=== PATIENT | female | born 1950 | race Caucasian/White ===

== ENCOUNTER 2018-09-26 10:58 | Emergency (ER) | payer SELFPAY ==
[2018-09-26 11:06] VITALS: BP 172/76; PULSE 78; TEMP 98.2; BMI 31.7
[2018-09-26] MEDS ORDERED: ACETAMINOPHEN 325 MG TABLET (FP) PO ONE (11:56)
--- NOTE | 2018-09-26 11:56 | PDOC ---
History of Present Illness - General Chief Complaint: Injury Stated Complaint: FALL Time Seen by Provider: 09/26/18 11:48 History Source: Patient Exam Limitations: No Limitations - History of Present Illness Initial Comments: CHIEF COMPLAINT: 68 y/o afebrile female with PMH osteoporosis and arthritis with facial lac and head pain s/p fall while playing tennis. HISTORY OF PRESENT ILLNESS: The patient states [place] trying [place] get a ball and fell on her face. She now admits to headache and nose pain. She denies LOC, seizures, neck pain, n/v/d, CP, SOB, visual changes , pain with eye movement. She is not on a blood thinner. Vital signs on arrival are notable for BP of 172/76. REVIEW OF SYSTEMS: GENERAL/CONSTITUTIONAL: No fever/chills. No weakness. No weight change. HEAD, EYES, EARS, NOSE AND THROAT: No change in vision. No ear pain or discharge. No sore throat. +nose pain. CARDIOVASCULAR: No chest pain or shortness of breath. RESPIRATORY: No cough, wheezing, or hemoptysis. GASTROINTESTINAL: No nausea, vomiting, diarrhea. GENITOURINARY: No dysuria, frequency, or change in urination. MUSCULOSKELETAL: No joint or muscle swelling or pain. No neck or back pain. SKIN: No rash or easy bruising. +laceration to forehead NEUROLOGIC: +headache. No vertigo, loss of consciousness, or loss of sensation. PHYSICAL EXAM: GENERAL: The patient is awake, alert, and fully oriented, in no acute distress. HEAD: 6cm horizontal laceration to forehead with well approximated margins and minimal bleeding. NECK: No midline cervical spine TTP or step offs. Full flexion, extension and lateral movements of neck without pain. ENT: Pupils equal, round and reactive to light, extraocular movements intact, sclera anicteric, conjunctiva clear. No swelling, deformities or crepitus to orbits. No entrapment. No raccoon eyes. No septal hematomas. Nose appears crooked and slightly swollen but no crepitus. No bleeding from nares. LUNGS: Clear to auscultation bilaterally. Normal excursion. No respiratory distress or use of accessory muscles. CV: RRR, S1/S2, no MRG. Cap refill < 2 sec. ABDOMEN: Soft, non-distended, non-tender even to deep palpation, no hepatomegaly or splenomegaly, no masses. EXTREMITIES: Normal range of motion, no edema. NEUROLOGICAL: Normal speech, normal gait. CN II-XII grossly intact. Patient A& O x 3 SKIN: Warm, dry, normal turgor, no rashes or lesions noted. Past History - Past Medical History Allergies/Adverse Reactions: Allergies Allergy/AdvReac Type Severity Reaction Status Date / Time No Known Allergies Allergy Verified 09/26/18 11:02 Home Medications: Ambulatory Orders NK [No Known Home Medication] 09/26/18 COPD: No - Immunization History Immunization Up to Date: Yes - Suicide/Smoking/Psychosocial Hx Smoking History: Never smoked Information on smoking cessation initiated: No Hx Alcohol Use: No Drug/Substance Use Hx: No *Physical Exam - Vital Signs Last Vital Signs Temp Pulse Resp BP Pulse Ox 98.2 F 78 16 172/76 H 97 09/26/18 11:02 09/26/18 11:02 09/26/18 11:02 09/26/18 11:02 09/26/18 11:02 Moderate Sedation - Procedure Monitoring Vital Signs: Procedure Monitoring Vital Signs Temperature 98.2 F 09/26/18 11:02 Pulse Rate 78 09/26/18 11:02 Respiratory Rate 16 09/26/18 11:02 Blood Pressure 172/76 H 09/26/18 11:02 O2 Sat by Pulse Oximetry (%) 97 09/26/18 11:02 Procedures - Laceration/Wound Repair Anterior Head Wound Length: 5.0 to 7.5 cm Wound Explored: clean Wound's Depth, Shape: into muscle, irregular Irrigated w/ Saline: Yes Betadine Prep: Yes Anesthesia: 1% Lidocaine w/ Epi Amount of Anesthetic (ccs): 12 Wound Debrided: minimal Wound Repaired With: Sutures Suture Size/Type: 6:0 Number of Sutures: 10 Layer Closure: Yes Deep Layer Suture Size/Type: 3:0, gut Number of Deep Layer Sutures: 2 Sterile Dressing Applied: Yes Medical Decision Making - Medical Decision Making A/P: 68 y/o female with head trauma, facial lac and swollen nose after slip and fall while playing tennis today. Plan is as follows: 1. PO tylenol 2. Tetanus 3. Head CT 4. Facial bones CT 5. Lac repair Head CT IMPRESSION: No bleeding. No fracture Facial bones CT IMPRESSION: No fractures Gave patient results. Repaired lac. Gave all instructions. Her and her family understand all instructions. The patient verbalizes understanding of all instructions, has no further questions and is awaiting discharge. *DC/Admit/Observation/Transfer Diagnosis at time of Disposition: Laceration Head trauma Qualifiers: Encounter type: initial encounter Qualified Code(s): S09.90XA - Unspecified injury of head, initial encounter - Discharge Dispostion Disposition: HOME Condition at time of disposition: Improved - Referrals Referrals: Lisa Corado MD [Staff Physician] - - Patient Instructions Printed Discharge Instructions: DI for Closed Head Injury, DI for Laceration Repair -- Complex Suture Additional Instructions: Discharge Instructions: -The cat scan of your head and face were normal -You had 2 internal sutures that will be absorbed. You had 10 sutures that need to be removed in 5-7 days -Please keep wound dry for 24 hours -After 24 hours, wash gently with soap and water -Apply bacitracin tomorrow after cleaning area -No exercise for 2-3 weeks -Ice your face to help with swelling -Take tylenol for pain for the next 24 hours; afterwards you can restart your Meloxicam -Return to the ER with any worsening or concerning symptoms - Post Discharge Activity
[2018-09-26] MEDS ORDERED: ACETAMINOPHEN 325 MG TABLET (FP) ONE (11:57)
[2018-09-26] MEDS ORDERED: DIPHTH,PERTUSS(ACELL),TET 0.5 ML DISP.SYRIN IM ONE ×2 (12:08→13:02)
[2018-09-26] MEDS ORDERED: LIDOCAINE 1%/EPI 1:100000 (20 ML MULTI DOSE VIAL) ONE (13:54)
--- NOTE | 2018-09-26 22:57 | PDOC ---
*Physical Exam - Vital Signs Last Vital Signs Temp Pulse Resp BP Pulse Ox 98.2 F 78 16 172/76 H 97 09/26/18 11:02 09/26/18 11:02 09/26/18 11:02 09/26/18 11:02 09/26/18 11:02 - Physical Exam Comments: 09/26/18 23:53 gen: [id number], head: forehead lac - sutures in place, slow ooze from middle aspect of forehead lac neuro: no focal neuro deficits, ambulates with a steady gait -facial abrasion - no other active bleeding ED Treatment Course - Medications Given in the ED: ED Medications Discontinued Medications Generic Name Dose Route Start Last Admin Trade Name Freq PRN Reason Stop Dose Admin Acetaminophen 650 mg 09/26/18 11:56 09/26/18 12:01 Tylenol - PO 09/26/18 11:57 650 mg ONCE ONE Administration Diphtheria/Tetanus/Acell Pertussis 0.5 ml 09/26/18 12:08 09/26/18 13:28 Boostrix - IM 09/26/18 12:09 0.5 ml .ONCE ONE Administration Medical Decision Making - Medical Decision Making 09/27/18 00:03 a/p: 68yo female with forehead lac with persistent oozing from the site -recombinant thrombin and surgicel applied -pressure applied -bleeding stopped -pt ambulating in the ED without any further bleeding -all sutures in place -stable for d/c to home -dressing re-applied -pt feeling much better and confident she can now go home without any further bleeding *DC/Admit/Observation/Transfer Diagnosis at time of Disposition: Laceration Head trauma Qualifiers: Encounter type: initial encounter Qualified Code(s): S09.90XA - Unspecified injury of head, initial encounter - Discharge Dispostion Disposition: HOME Condition at time of disposition: Improved - Referrals Referrals: Lisa Corado MD [Staff Physician] - - Patient Instructions Printed Discharge Instructions: DI for Laceration Repair -- Complex Suture, DI for Closed Head Injury Additional Instructions: Discharge Instructions: -The cat scan of your head and face were normal -You had 2 internal sutures that will be absorbed. You had 10 sutures that need to be removed in 5-7 days -Please keep wound dry for 24 hours -After 24 hours, wash gently with soap and water -Apply bacitracin tomorrow after cleaning area -No exercise for 2-3 weeks -Ice your face to help with swelling -Take tylenol for pain for the next 24 hours; afterwards you can restart your Meloxicam -Return to the ER with any worsening or concerning symptoms - Post Discharge Activity
[2018-09-26] MEDS ORDERED: THROMBIN (RECOMBINANT) 5,000 UNIT VIAL TP ONE (23:30)
--- NOTE | 2018-09-27 00:08 | PDOC ---
*Physical Exam - Vital Signs Last Vital Signs Temp Pulse Resp BP Pulse Ox 98.2 F 78 16 172/76 H 97 09/26/18 11:02 09/26/18 11:02 09/26/18 11:02 09/26/18 11:02 09/26/18 11:02 ED Treatment Course - Medications Given in the ED: ED Medications Discontinued Medications Generic Name Dose Route Start Last Admin Trade Name Kerry PRN Reason Stop Dose Admin Acetaminophen 650 mg 09/26/18 11:56 09/26/18 12:01 Tylenol - PO 09/26/18 11:57 650 mg ONCE ONE Administration Diphtheria/Tetanus/Acell Pertussis 0.5 ml 09/26/18 12:08 09/26/18 13:28 Boostrix - IM 09/26/18 12:09 0.5 ml .ONCE ONE Administration Thrombin (Recombinant) 5,000 unit 09/26/18 23:30 09/26/18 23:30 Recothrom TP 09/26/18 23:31 5,000 unit ONCE ONE Administration Medical Decision Making - Medical Decision Making Pt was signed out by NAHOMI Santos. Pt was evaluated in fast track after a fall and had a forehead laceration sutured. Head CT was negative. Pt was brought back to main ER floor due to continued oozing from L lateral end of suture site. After holding continued pressure, applying ~0.5 cc of liquid direct thrombin inhibitor, and applying a surgicell bandage, the oozing from the suture site was controlled. Pressure bandage was applied and pt was advised not to wash the area or remove the surgicell for another day. Pt will be discharged to home with PCP follow-up. Strict return precautions provided with pt understanding. 09/27/18 00:05 *DC/Admit/Observation/Transfer Diagnosis at time of Disposition: Laceration Head trauma Qualifiers: Encounter type: initial encounter Qualified Code(s): S09.90XA - Unspecified injury of head, initial encounter - Discharge Dispostion Disposition: HOME Condition at time of disposition: Improved - Referrals Referrals: Lisa Corado MD [Staff Physician] - - Patient Instructions Printed Discharge Instructions: DI for Laceration Repair -- Complex Suture, DI for Closed Head Injury Additional Instructions: Discharge Instructions: -The cat scan of your head and face were normal -You had 2 internal sutures that will be absorbed. You had 10 sutures that need to be removed in 5-7 days -Please keep wound dry for 24 hours -After 24 hours, wash gently with soap and water -Apply bacitracin tomorrow after cleaning area -No exercise for 2-3 weeks -Ice your face to help with swelling -Take tylenol for pain for the next 24 hours; afterwards you can restart your Meloxicam -Return to the ER with any worsening or concerning symptoms - Post Discharge Activity
== END 2018-09-27 00:11 | disposition home or self-care (01) ==
LOC: JER 10:58 → JERFT 10:58
PROC: 3E0234Z Introduction of Serum, Toxoid and Vaccine into Muscle, Percutaneous Approach (ICD-10-PCS; principal; 2018-09-26)
PROC: 0JQ10ZZ Repair Face Subcutaneous Tissue and Fascia, Open Approach (ICD-10-PCS; 2018-09-26)
DX: S01.81XA Laceration without foreign body of other part of head, initial encounter (principal); W18.39XA Other fall on same level, initial encounter; Y93.73 Activity, racquet and hand sports; Y92.312 Tennis court as the place of occurrence of the external cause; Y99.8 Other external cause status
CPT/HCPCS: 70450-TC; 70486-TC; 90715; 99282-25

== ENCOUNTER 2018-09-26 20:25 | Emergency (ER) | payer SELFPAY ==
--- NOTE | 2018-09-26 20:56 | PDOC ---
Rapid Medical Evaluation Medical Evaluation: Allergies Allergy/AdvReac Type Severity Reaction Status Date / Time No Known Allergies Allergy Verified 09/26/18 11:02 I have performed a brief in-person evaluation of this patient. The patient presents with a chief complaint of: Patient just discharged from ED today for repair of forehead laceration that she got around 10:30 AM today; patient is not on blood thinners Pertinent physical exam findings: Patient has active bleeding from site of laceration (in need of more stitches) The patient will proceed to the ED for further evaluation. 09/26/18 20:54
[2018-09-26 20:59] VITALS: BP 163/76; PULSE 72; TEMP 98; BMI 31.7
--- NOTE | 2018-09-26 21:17 | PDOC ---
History of Present Illness - General Chief Complaint: Laceration Stated Complaint: Suture/Staple Removal(Here) Time Seen by Provider: 09/26/18 21:08 History Source: Patient Exam Limitations: No Limitations - History of Present Illness Initial Comments: Patient is a 68-year-old female who was evaluated earlier today a laceration repair by another physician public health training assistant and a head CT which was negative who returns stating that the laceration to the right side of her for had there is a scant amount of bleeding. She denies reinjury or trauma. She denies visual disturbances. She denies nausea or vomiting, denies otorrhea or rhinorrhea. She is not been taking NSAIDs nor is hse on anticoagulants. Pain is a 2 out of 10. Denies any relieving or relieving factors. 09/26/18 21:12 Past History - Travel Traveled outside of the country in the last 30 days: No Close contact w/someone who was outside of country & ill: No - Past Medical History Allergies/Adverse Reactions: Allergies Allergy/AdvReac Type Severity Reaction Status Date / Time No Known Allergies Allergy Verified 09/26/18 20:56 Home Medications: Ambulatory Orders NK [No Known Home Medication] 09/26/18 COPD: No - Immunization History Immunization Up to Date: Yes - Suicide/Smoking/Psychosocial Hx Smoking History: Never smoked Have you smoked in the past 12 months: No Information on smoking cessation initiated: No Hx Alcohol Use: No Drug/Substance Use Hx: No Review of Systems - Review of Systems Able to Perform ROS?: Yes All Other Systems: Reviewed and Negative *Physical Exam - Vital Signs Last Vital Signs Temp Pulse Resp BP Pulse Ox 98.0 F 72 18 163/76 98 09/26/18 20:57 09/26/18 20:57 09/26/18 20:57 09/26/18 20:57 09/26/18 20:57 - Physical Exam Comments: Constitutional: VS stated, pt appears in no apparent distress; sitting in chair. Skin: Pt has a 6 cm laceration which has been repaired to the right side of the forehead. Sutures are in place, pt has a scant amount of blood to the end. Head: Normocephalic; Eyes: Extraocular movements intact, PERRL, conjunctiva pink without injection or discharge. Lids normal; no periorbital edema or erythema. Vision subjectively normal or at baseline. Ears: No tenderness present. Canals without injection or discharge; TM clear, no retractions or bulging. Nose: Patent, mucosa pink. No drainage. Throat: Oropharynx with pink and moist mucosa. Neck: Supple, non-tender, with full ROM, trachea midline, no anterior/posterior cervical chain lymphadenopathy, thyroid nonpalpable. No stridor or bruits. Lungs: Bilateral breath sounds clear upon auscultation. No adventitious breath sounds. Heart: Regular rate and rhythm, S1/S2 auscultated. No murmurs, rubs, or gallops. No visible pulsations, heaves, or lifts on precordium. Musculoskeletal: Moves all extremities without difficulty. Neurologic: Awake, alert. Conversation fluent. Normal attention. Oriented to person, place, and time. Cranial nerves 1-12 intact. Gross sensory and motor strength intact; cerebellar function normal. Steady gait noted, deep tendon reflexes within normal range. 09/26/18 21:13 Moderate Sedation - Procedure Monitoring Vital Signs: Procedure Monitoring Vital Signs Temperature 98.0 F 09/26/18 20:57 Pulse Rate 72 09/26/18 20:57 Respiratory Rate 18 09/26/18 20:57 Blood Pressure 163/76 09/26/18 20:57 O2 Sat by Pulse Oximetry (%) 98 09/26/18 20:57 Medical Decision Making - Medical Decision Making 09/26/18 21:16 Pressure dressing was applied. *DC/Admit/Observation/Transfer Diagnosis at time of Disposition: Laceration - Discharge Dispostion Disposition: HOME Condition at time of disposition: Stable Decision to Admit order: No - Referrals - Patient Instructions Printed Discharge Instructions: DI for Laceration Repair Additional Instructions: Pressure dressing on for 2 days, keep dry. Then remove. Return for worsening symptoms. - Post Discharge Activity
== END 2018-09-26 21:40 | disposition home or self-care (01) ==
LOC: JERFT 20:25
DX: S01.81XD Laceration without foreign body of other part of head, subsequent encounter (principal); W18.39XD Other fall on same level, subsequent encounter
CPT/HCPCS: 99281-25

== ENCOUNTER 2019-04-24 14:12 | Inpatient (IN) | payer OTHER ==
--- NOTE | 2019-04-24 14:25 | PDOC ---
History of Present Illness - General Chief Complaint: Pain Stated Complaint: ABD PAIN Time Seen by Provider: 04/24/19 14:14 History Source: Patient Exam Limitations: No Limitations - History of Present Illness Initial Comments: 04/24/19 15:20 68 year old female with history of osteoarthritis, rheumatoid arthritis p/w epigastric and RUQ pain. Two days ago, after eating, she started to develop an upper abdominal discomfort and indigestion / pain. The pain persisted and felt like her prior gastritis. She had a few episodes of nausea and vomiting, but denies hematochezia, hematemesis, tarry black stool, or blood in stool. The following day, her symptoms improved but still somewhat persisted. Today, after eating again, she developed RUQ pain with nausea. No fevers, chills. 1st time episode. Never had gallbladder problems in the past. She tried taking indigestion medications with no relief. Pain radiates to right shoulder. No chest pain or shortness of breath. Has a hx of appendectomy. Because pain persisted, pt came into the ED. Past History - Past Medical History Allergies/Adverse Reactions: Allergies Allergy/AdvReac Type Severity Reaction Status Date / Time ciprofloxacin [From Cipro] Allergy Verified 04/24/19 14:13 codeine Allergy Verified 04/24/19 14:13 Home Medications: Ambulatory Orders Hydroxychloroquine Sulfate [Plaquenil] 200 mg PO DAILY 04/24/19 Raloxifene HCl [Evista (Nf) -] 60 mg PO DAILY 04/24/19 COPD: No Other medical history: BORDERLINE OSTEOPOROSIS, RHEUMATOID ARTHRITIS, UTERINE FIBROIDS - Surgical History Abdominal Surgery: Yes (D&C) - Immunization History Immunization Up to Date: Yes - Suicide/Smoking/Psychosocial Hx Smoking History: Never smoked Have you smoked in the past 12 months: No Information on smoking cessation initiated: No Hx Alcohol Use: (occasional) Drug/Substance Use Hx: No Review of Systems - Review of Systems Able to Perform ROS?: Yes Comments:: 04/24/19 15:23 GENERAL/CONSTITUTIONAL: [No fever or chills. No weakness. No weight change.] HEAD, EYES, EARS, NOSE AND THROAT: [No change in vision. No ear pain or discharge. No sore throat.] CARDIOVASCULAR: [No chest pain or shortness of breath.] RESPIRATORY: [No cough, wheezing, or hemoptysis.] GASTROINTESTINAL: [No diarrhea or constipation. No rectal bleeding.] +abdominal pain, nausea and vomiting GENITOURINARY: [No dysuria, frequency, or change in urination.] MUSCULOSKELETAL: [No joint or muscle swelling or pain. No neck or back pain.] SKIN AND BREASTS: [No rash or easy bruising.] NEUROLOGIC: [No headache, vertigo, loss of consciousness, or loss of sensation.] PSYCHIATRIC: [No depression or anxiety.] ENDOCRINE: [No increased thirst. No abnormal weight change.] HEMATOLOGIC/LYMPHATIC: [No anemia, easy bleeding, or history of blood clots.] ALLERGIC/IMMUNOLOGIC: [No hives or skin allergy. No latex allergy.] *Physical Exam - Vital Signs Last Vital Signs Temp Pulse Resp BP Pulse Ox 98.5 F 100 H 18 155/62 100 04/24/19 14:12 04/24/19 14:12 04/24/19 14:12 04/24/19 14:12 04/24/19 14:12 - Physical Exam Comments: 04/24/19 15:29 GENERAL: Awake, alert, and fully oriented, in no acute distress HEAD: No signs of trauma EYES: EOMI, sclera anicteric, conjunctiva clear ENT: Auricles normal inspection, hearing grossly normal, nares patent, NECK: Normal ROM, supple, LUNGS: Breath sounds equal, clear to auscultation bilaterally. No wheezes, and no crackles HEART: Regular rate and rhythm, normal S1 and S2, no murmurs, rubs or gallops ABDOMEN: Soft, TTP epigastric and RUQ. Muphy sign positive. No guarding, no rebound. No masses EXTREMITIES: Normal range of motion, no edema. No clubbing or cyanosis. No cords, erythema, or tenderness NEUROLOGICAL: Cranial nerves II through XII grossly intact. Normal speech SKIN: Warm, Dry, normal turgor, no rashes or lesions noted. Heart Score/ECG Review #1 ECG reviewed & interpreted by me at: 14:50 04/24/19 15:20 NSR 95, LVH, no std/albino, normal axis, normal intervals, QTC 480 msec ED Treatment Course - LABORATORY CBC & Chemistry Diagram: 04/24/19 15:00 04/24/19 15:00 Medical Decision Making - Medical Decision Making 04/24/19 15:30 Vital Signs Temp Pulse Resp BP Pulse Ox 98.5 F 100 H 18 155/62 100 04/24/19 14:12 04/24/19 14:12 04/24/19 14:12 04/24/19 14:12 04/24/19 14:12 Differential includes biliary colic, acute cholecystitis, gastritis, pancreatitis, other acute abdominal pathology. We'll trial gastritis medications but will need the right upper quadrant ultrasound and labs and further investigate. 04/24/19 16:20 CBC, BMP 04/24/19 15:00 04/24/19 15:00 CMP Sodium 133 mmol/L (136-145) L 04/24/19 15:00 Potassium 3.7 mmol/L (3.5-5.1) 04/24/19 15:00 Chloride 99 mmol/L (98-107) 04/24/19 15:00 Carbon Dioxide 25 mmol/L (21-32) 04/24/19 15:00 Anion Gap 9 MMOL/L (8-16) 04/24/19 15:00 BUN 15.0 mg/dl (7-18) 04/24/19 15:00 Creatinine 0.6 mg/dl (0.55-1.3) 04/24/19 15:00 Est GFR (CKD-EPI)AfAm 107.03 04/24/19 15:00 Est GFR (CKD-EPI)NonAf 92.35 04/24/19 15:00 Random Glucose 134 mg/dl (74-106) H 04/24/19 15:00 Calcium 8.8 mg/dl (8.5-10) 04/24/19 15:00 Total Bilirubin 0.9 mg/dl (0.2-1) 04/24/19 15:00 AST 23 U/L (15-37) 04/24/19 15:00 ALT 20 U/L (13-61) 04/24/19 15:00 Alkaline Phosphatase 87 U/L (45-117) 04/24/19 15:00 Troponin I < 0.03 ng/ml (0.00-0.05) 04/24/19 15:00 Total Protein 7.1 g/dl (6.4-8.2) 04/24/19 15:00 Albumin 3.8 g/dl (3.4-5.0) 04/24/19 15:00 Lipase 172 U/L (73-393) 04/24/19 15:00 Urine Test Results Urine Color Yellow 04/24/19 14:21 Urine Appearance Clear 04/24/19 14:21 Urine pH 5.0 (4.5-8) 04/24/19 14:21 Urine Protein Trace (NEGATIVE) 04/24/19 14:21 Urine Glucose (UA) Negative (NEGATIVE) 04/24/19 14:21 Urine Ketones 3+ (NEGATIVE) H 04/24/19 14:21 Urine Blood 2+ (NEGATIVE) H 04/24/19 14:21 Urine Nitrite Negative (NEGATIVE) 04/24/19 14:21 Urine Bilirubin 1+ (NEGATIVE) H 04/24/19 14:21 Ur Leukocyte Esterase Negative (NEGATIVE) 04/24/19 14:21 Urine RBC 40-60 /hpf (0-4) 04/24/19 14:21 Urine WBC 2-5 (NEGATIVE) 04/24/19 14:21 The patient noted with a temp of 100.1 and WBC 18 with RUQ pain. Gallstones noted on US but without definitive evidence of acute cholecystitis. However, my suspicion for acute cholecystitis is quite high. IV zosyn ordered. Will consult general surgery. CT abdomen and pelvis ordered. 04/24/19 18:04 CT scan demonstrates acute cholecystitis. Case discussed with Dr. Piper. Pt will be booked for the OR tomorrow. Admit. 04/24/19 18:[address] Jackman. [facility] *DC/Admit/Observation/Transfer Diagnosis at time of Disposition: Acute cholecystitis - Discharge Dispostion Condition at time of disposition: Stable Decision to Admit order: Yes - Referrals Referrals: Jeronimo Solis [Primary Care Provider] - - Patient Instructions - Post Discharge Activity
[2019-04-24] MEDS ORDERED: SODIUM CHLORIDE 1,000 ML IV SCH ×2 (14:45→16:45)
[2019-04-24 15:11] LABS: BASO % 1.6 % (0-2.0); EOS % 0.3 % (0-4.5); HEMATOCRIT 38.2 % (32.4-45.2); HEMOGLOBIN 12.9 GM/dl (10.7-15.3); LYMPH % 7.2 % (8-40); MCH 29.9 pg (25.7-33.7); MCHC 33.8 g/dl (32.0-36.0); MEAN CELL VOLUME 88.2 fl (80-96); MEAN PLT VOLUME 9.3 fl (7.5-11.1); MONO % 7.5 % (3.8-10.2); NEUT % 83.4 % (42.8-82.8); PLATELET COUNT 226 K/MM3 (134-434); RBC 4.33 M/mm3 (3.60-5.2); RDW 12.8 % (11.6-15.6)
[2019-04-24 15:11] LABS: EPITHELIAL CELLS FEW /hpf
[2019-04-24] MEDS ORDERED: ACETAMINOPHEN 1000 MG/100 ML VIAL (NON FORMULARY) IVPB ONE (15:16)
[2019-04-24] MEDS ORDERED: ONDANSETRON 4 MG/2 ML VIAL IVPB ONE (15:16)
[2019-04-24] MEDS ORDERED: FAMOTIDINE 20 MG/50 ML IVPB 20 MG/50 ML MG IVPB ONE ×2 (15:16→15:24)
[2019-04-24] MEDS ORDERED: MAG HYDROX/AL HYDROX/SIMETH 30 ML UNIT-DOSE CUP PO ONE (15:16)
[2019-04-24] MEDS ORDERED: ACETAMINOPHEN INJECTION 100 ML IVPB ONE (15:24)
[2019-04-24 15:25] LABS: ALBUMIN 3.8 g/dl (3.4-5.0); BILIRUBIN,TOTAL 0.9 mg/dl (0.2-1); CALCIUM 8.8 mg/dl (8.5-10); CREATININE 0.6 mg/dl (0.55-1.3); POTASSIUM 3.7 mmol/L (3.5-5.1); TOT PROT 7.1 g/dl (6.4-8.2)
[2019-04-24] MEDS ORDERED: MAG HYDROX/AL HYDROX/SIMETH 30 ML UNIT-DOSE CUP ONE (15:25)
[2019-04-24] MEDS ORDERED: ONDANSETRON 4 MG/2 ML VIAL ONE (15:25)
[2019-04-24] MEDS ORDERED: PIPERACILLIN/TAZOB 3.375 GM 3.375 GM in DEXTROSE 5%-WATER - 50 ML IVPB ONE (15:48)
[2019-04-24] MEDS ORDERED: PIPERACILLIN/TAZOBACTAM 3.375 GM VIAL IVPB ONE (15:52)
[2019-04-24] MEDS ORDERED: HYDROmorphone HCL CARPU-JECT 1 MG/1 ML DISP.SYRIN IVPB ONE ×2 (16:22→17:38)
[2019-04-24] MEDS ORDERED: HYDROmorphone HCL CARPU-JECT 1 MG/1 ML DISP.SYRIN ONE ×2 (16:25→17:46)
[2019-04-24 18:08] LABS: ACTIVATED PTT 29.4 SECONDS (25.2-36.5)
[2019-04-24 18:12] LABS: INR 1.27 (0.82-1.09); PROTHROMBIN TIME (PATIENT) 14.2 SEC (10.2-13.0)
[2019-04-24] MEDS: SODIUM CHLORIDE 1,000 ML IV SCH (19:00)
[2019-04-24] MEDS ORDERED: ACETAMINOPHEN 650 MG SUPP.RECT PR PRN (19:00)
[2019-04-24] MEDS ORDERED: ONDANSETRON 4 MG/2 ML VIAL IVPUSH PRN (19:00)
--- NOTE | 2019-04-24 19:07 | HP ---
Admitting History and Physical - Primary Care Physician PCP: Jeronimo Solis T - Admission Chief Complaint: abd pain History of Present Illness: 68 yrs old F no significant PMH except RA, Cardiac murmur, present with 2 dyas H/O Rt UQ pain with nausea and vomiting that was started on Sunday, intermittent 07/17, situated Rt UQ radiates to Rt shoulder also c/o feeling unwell , fever and chills, no hemetmesis or melena , denies any chest mckenna, SOB or palpitation at base line no recent change in ET denies any orthopnea or PND, in the Ed spiked 101.4 with Elevated TWBC and CT abd shows Acute cholycystitis withy gall stone received IV zosyn , surgery consult , plan for cholycystectomy in am. Patient has unlimited ET exercise daily in the GYM History Source: Patient - Past Medical History Cardiovascular: Yes: Murmur Heme/Onc: Yes: Other (Ca brest 5 yrs ago) Musculoskeletal: Yes: Osteoarthritis - Past Surgical History Past Surgical History: Yes: Mastectomy - Smoking History Smoking history: Never smoked Have you smoked in the past 12 months: No - Alcohol/Substance Use Hx Alcohol Use: (occasional) - Social History Usual Living Arrangement: Yes: With Spouse History of Recent Travel: No Home Medications - Allergies Allergies/Adverse Reactions: Allergies Allergy/AdvReac Type Severity Reaction Status Date / Time ciprofloxacin [From Cipro] Allergy Verified 04/24/19 14:13 codeine Allergy Verified 04/24/19 14:13 - Home Medications Home Medications: Ambulatory Orders Hydroxychloroquine Sulfate [Plaquenil] 200 mg PO DAILY 04/24/19 Raloxifene HCl [Evista (Nf) -] 60 mg PO DAILY 04/24/19 Family Disease History - Family Disease History Family History: Unremarkable Review of Systems - Review of Systems Constitutional: reports: Chills, Fever HENT: denies: Difficult Swallowing, Ear Discharge, Ear Pain, Epistaxis Neck: denies: Decreased ROM, Pain on Movement Cardiovascular: denies: Chest Pain, Edema, Palpitations Respiratory: denies: Cough, Exercise Intolerance, Hemoptysis Gastrointestinal: reports: Abdominal Pain, Nausea, Vomiting Genitourinary: denies: Burning, Discharge, Dysuria Musculoskeletal: denies: Back Pain, Crepitus Integumentary: denies: Blister, Bruising, Change in Color Neurological: denies: Change in Speech, Confusion, Syncope Endocrine: denies: Excessive Sweating Pain Intensity: 5 Physical Examination Vital Signs: Vital Signs Temperature 98.9 F 04/24/19 17:44 Pulse Rate 89 04/24/19 16:40 Respiratory Rate 16 04/24/19 16:40 Blood Pressure 154/64 04/24/19 16:40 O2 Sat by Pulse Oximetry (%) 99 04/24/19 16:40 Elderly F comfortable not in distress HEENT: Mm moist, no anemia NECK: No JVD No Bruit CHEST:CTA B/L CVS:S1S2 R SM at Left sternal border ABD:No distention Rt UQ and epigastric pain and tenderness EXT:No edema feet,no calf tenderness, Pulses +2 B/L, no calf tenderness LUMBER SORTER:AOX3 non focal Labs: CBC,CMP WBC 18.0 K/mm3 (4.0-10.8) H 04/24/19 15:00 RBC 4.33 M/mm3 (3.60-5.2) 04/24/19 15:00 Hgb 12.9 GM/dl (10.7-15.3) 04/24/19 15:00 Hct 38.2 % (32.4-45.2) 04/24/19 15:00 MCV 88.2 fl (80-96) 04/24/19 15:00 MCH 29.9 pg (25.7-33.7) 04/24/19 15:00 MCHC 33.8 g/dl (32.0-36.0) 04/24/19 15:00 RDW 12.8 % (11.6-15.6) 04/24/19 15:00 Plt Count 226 K/MM3 (134-434) 04/24/19 15:00 MPV 9.3 fl (7.5-11.1) 04/24/19 15:00 Absolute Neuts (auto) 14.9 K/mm3 04/24/19 15:00 Neutrophils % 83.4 % (42.8-82.8) H 04/24/19 15:00 Lymphocytes % 7.2 % (8-40) L 04/24/19 15:00 Monocytes % 7.5 % (3.8-10.2) 04/24/19 15:00 Eosinophils % 0.3 % (0-4.5) 04/24/19 15:00 Basophils % 1.6 % (0-2.0) 04/24/19 15:00 Sodium 133 mmol/L (136-145) L 04/24/19 15:00 Potassium 3.7 mmol/L (3.5-5.1) 04/24/19 15:00 Chloride 99 mmol/L (98-107) 04/24/19 15:00 Carbon Dioxide 25 mmol/L (21-32) 04/24/19 15:00 Anion Gap 9 MMOL/L (8-16) 04/24/19 15:00 BUN 15.0 mg/dl (7-18) 04/24/19 15:00 Creatinine 0.6 mg/dl (0.55-1.3) 04/24/19 15:00 Est GFR (CKD-EPI)AfAm 107.03 04/24/19 15:00 Est GFR (CKD-EPI)NonAf 92.35 04/24/19 15:00 Random Glucose 134 mg/dl (74-106) H 04/24/19 15:00 Calcium 8.8 mg/dl (8.5-10) 04/24/19 15:00 Total Bilirubin 0.9 mg/dl (0.2-1) 04/24/19 15:00 AST 23 U/L (15-37) 04/24/19 15:00 ALT 20 U/L (13-61) 04/24/19 15:00 Alkaline Phosphatase 87 U/L (45-117) 04/24/19 15:00 Troponin I < 0.03 ng/ml (0.00-0.05) 04/24/19 15:00 Total Protein 7.1 g/dl (6.4-8.2) 04/24/19 15:00 Albumin 3.8 g/dl (3.4-5.0) 04/24/19 15:00 Lipase 172 U/L (73-393) 04/24/19 15:00 Imaging - Results Chest X-ray: Report Reviewed (No acute changes) Cat Scan: Report Reviewed (Acutecholycystitis) Ultrasound: Report Reviewed (RT UQ Colelthiasis) EKG: Report Reviewed (95NSR QTc 480 ms axis -[address] chnages) Problem List - Problems (1) Acute cholecystitis Assessment/Plan: NPO, Pian control IV Hydrtain, IV zofran PRN, IV PPI cont Zosyn F/U Blood culture possible Choleystectomy in am, surgery is called from ED. Code(s): K81.0 - ACUTE CHOLECYSTITIS (2) Arthritis, rheumatoid Assessment/Plan: On Plaqunil will Hold PRN Tylenol IN for pain and fever Code(s): M06.9 - RHEUMATOID ARTHRITIS, UNSPECIFIED (3) Pre-op evaluation Assessment/Plan: 68 yrs old F with H/O RA and cardiac murmur no H/O CHF, CAd, HTN denies any exertional CP, SOB or palpitation admitted with Acute calculus Cholycystitis , patient has intermediate cardio Pulmonary risk for moderate risk surgery if indicated surgery can be performed without any additional evaluation for cardio Pulmonary risk stratification. Code(s): Z01.818 - ENCOUNTER FOR OTHER PREPROCEDURAL EXAMINATION (4) Cardiac murmur Assessment/Plan: Grade 3 cardiac murmur at Left sternal border, previously seen by a Cyber Legal Advisor never had an ECHO asymptomatic will F/U ECHo cardiogram Code(s): R01.1 - CARDIAC MURMUR, UNSPECIFIED
[2019-04-24] MEDS ORDERED: PIPERACILLIN/TAZOB 3.375 GM 3.375 GM in DEXTROSE 5%-WATER - 50 ML IVPB SCH (19:15)
[2019-04-24] MEDS: HYDROmorphone HCL CARPU-JECT 1 MG/1 ML DISP.SYRIN IVPB PRN (20:30)
[2019-04-25] MEDS ORDERED: DEXTROSE 5%-WATER - 50 ML IVPB ONE ×3 (01:43→18:22)
[2019-04-25] MEDS ORDERED: PIPERACILLIN/TAZOBACTAM 3.375 GM VIAL IVPB ONE ×3 (01:43→18:21)
[2019-04-25] MEDS ORDERED: PIPERACILLIN/TAZOB 3.375 GM 3.375 GM in DEXTROSE 5%-WATER - 50 ML IVPB SCH ×3 (02:00)
[2019-04-25] MEDS: HYDROmorphone HCL CARPU-JECT 1 MG/1 ML DISP.SYRIN IVPB PRN ×4 (03:00→18:43)
[2019-04-25 07:26] LABS: BASO % 0.2 % (0-2.0); EOS % 0.8 % (0-4.5); HEMATOCRIT 33.5 % (32.4-45.2); HEMOGLOBIN 11.4 GM/dl (10.7-15.3); LYMPH % 9.5 % (8-40); MCH 29.8 pg (25.7-33.7); MCHC 34.1 g/dl (32.0-36.0); MEAN CELL VOLUME 87.3 fl (80-96); MEAN PLT VOLUME 9.5 fl (7.5-11.1); MONO % 8.7 % (3.8-10.2); NEUT % 80.8 % (42.8-82.8); PLATELET COUNT 192 K/MM3 (134-434); RBC 3.83 M/mm3 (3.60-5.2); RDW 12.3 % (11.6-15.6); WHITE BLOOD COUNT 15.4 K/mm3 (4.0-10.8)
[2019-04-25 08:07] LABS: ALBUMIN 2.9 g/dl (3.4-5.0); CALCIUM 8.5 mg/dl (8.5-10); CREATININE 0.5 mg/dl (0.55-1.3); POTASSIUM 3.9 mmol/L (3.5-5.1); TOT PROT 5.7 g/dl (6.4-8.2)
[2019-04-25] MEDS: PANTOPRAZOLE SODIUM 40 MG VIAL IVPUSH SCH (09:05)
[2019-04-25] MEDS: PIPERACILLIN/TAZOB 3.375 GM 3.375 GM in DEXTROSE 5%-WATER - 50 ML IVPB SCH ×2 (10:05→18:28)
--- NOTE | 2019-04-25 10:52 | PN ---
Physical Exam: SUBJECTIVE: Patient seen and examined at bedside. +abdominal pain OBJECTIVE: Vital Signs Period Temp Pulse Resp BP Sys/Pandya Pulse Ox Last 24 Hr 98.5 F-100.5 F 89-114 16-19 134-155/61-67 95-100 GENERAL: The patient is awake, alert, and fully oriented, in no acute distress. LUNGS: Breath sounds equal, clear to auscultation bilaterally, no wheezes, no crackles, no accessory muscle use. HEART: Regular rate and rhythm, S1, S2 ABDOMEN: Exquisitely tender over RUQ EXTREMITIES: 2+ pulses, warm, well-perfused, no edema. NEUROLOGICAL: Cranial nerves II through XII grossly intact. Normal speech, gait not observed. Laboratory Results - last 24 hr 04/24/19 04/24/19 04/24/19 14:21 15:00 15:00 WBC 18.0 H RBC 4.33 Hgb 12.9 Hct 38.2 MCV 88.2 MCH 29.9 MCHC 33.8 RDW 12.8 Plt Count 226 MPV 9.3 Absolute Neuts (auto) 14.9 Neutrophils % 83.4 H Lymphocytes % 7.2 L Monocytes % 7.5 Eosinophils % 0.3 Basophils % 1.6 PT with INR INR PTT (Actin FS) Sodium 133 L Potassium 3.7 Chloride 99 Carbon Dioxide 25 Anion Gap 9 BUN 15.0 Creatinine 0.6 Est GFR (CKD-EPI)AfAm 107.03 Est GFR (CKD-EPI)NonAf 92.35 Random Glucose 134 H Lactic Acid Calcium 8.8 Total Bilirubin 0.9 AST 23 ALT 20 Alkaline Phosphatase 87 Troponin I Total Protein 7.1 Albumin 3.8 Lipase Urine Color Yellow Urine Appearance Clear Urine pH 5.0 Urine Protein Trace Urine Glucose (UA) Negative Urine Ketones 3+ H Urine Blood 2+ H Urine Nitrite Negative Urine Bilirubin 1+ H Urine Urobilinogen 0.2 Ur Leukocyte Esterase Negative Urine RBC 40-60 Urine WBC 2-5 Ur Transition Epith Cell Few Blood Type Antibody Screen 04/24/19 04/24/19 04/24/19 15:00 15:00 17:30 WBC RBC Hgb Hct MCV MCH MCHC RDW Plt Count MPV Absolute Neuts (auto) Neutrophils % Lymphocytes % Monocytes % Eosinophils % Basophils % PT with INR 14.2 H INR 1.27 H PTT (Actin FS) 29.4 Sodium Potassium Chloride Carbon Dioxide Anion Gap BUN Creatinine Est GFR (CKD-EPI)AfAm Est GFR (CKD-EPI)NonAf Random Glucose Lactic Acid Calcium Total Bilirubin AST ALT Alkaline Phosphatase Troponin I < 0.03 Total Protein Albumin Lipase 172 Urine Color Urine Appearance Urine pH Urine Protein Urine Glucose (UA) Urine Ketones Urine Blood Urine Nitrite Urine Bilirubin Urine Urobilinogen Ur Leukocyte Esterase Urine RBC Urine WBC Ur Transition Epith Cell Blood Type Antibody Screen 04/24/19 04/24/19 04/25/19 17:30 19:25 06:57 WBC 15.4 H RBC 3.83 Hgb 11.4 Hct 33.5 MCV 87.3 MCH 29.8 MCHC 34.1 RDW 12.3 Plt Count 192 MPV 9.5 Absolute Neuts (auto) 12.5 Neutrophils % 80.8 Lymphocytes % 9.5 Monocytes % 8.7 Eosinophils % 0.8 Basophils % 0.2 PT with INR INR PTT (Actin FS) Sodium Potassium Chloride Carbon Dioxide Anion Gap BUN Creatinine Est GFR (CKD-EPI)AfAm Est GFR (CKD-EPI)NonAf Random Glucose Lactic Acid 0.8 Calcium Total Bilirubin AST ALT Alkaline Phosphatase Troponin I Total Protein Albumin Lipase Urine Color Urine Appearance Urine pH Urine Protein Urine Glucose (UA) Urine Ketones Urine Blood Urine Nitrite Urine Bilirubin Urine Urobilinogen Ur Leukocyte Esterase Urine RBC Urine WBC Ur Transition Epith Cell Blood Type B POSITIVE Antibody Screen Negative 04/25/19 06:57 WBC RBC Hgb Hct MCV MCH MCHC RDW Plt Count MPV Absolute Neuts (auto) Neutrophils % Lymphocytes % Monocytes % Eosinophils % Basophils % PT with INR INR PTT (Actin FS) Sodium 138 Potassium 3.9 Chloride 106 Carbon Dioxide 27 Anion Gap 5 L BUN 10.0 Creatinine 0.5 L Est GFR (CKD-EPI)AfAm 113.65 Est GFR (CKD-EPI)NonAf 98.06 Random Glucose 108 H Lactic Acid Calcium 8.5 Total Bilirubin 1.0 AST 18 ALT 18 Alkaline Phosphatase 74 D Troponin I Total Protein 5.7 L Albumin 2.9 L Lipase Urine Color Urine Appearance Urine pH Urine Protein Urine Glucose (UA) Urine Ketones Urine Blood Urine Nitrite Urine Bilirubin Urine Urobilinogen Ur Leukocyte Esterase Urine RBC Urine WBC Ur Transition Epith Cell Blood Type Antibody Screen Active Medications Generic Name Dose Route Start Last Admin Trade Name Freq PRN Reason Stop Dose Admin Acetaminophen 650 mg 04/24/19 19:00 04/25/19 01:47 Tylenol Suppository - DC 650 mg Q6H PRN Administration FEVER Hydromorphone HCl 1 mg 04/24/19 19:00 04/25/19 08:12 Dilaudid Injection - IVPB 1 mg Q6H PRN Administration PAIN Piperacillin Sod/Tazobactam 50 mls @ 100 mls/hr 04/25/19 10:00 Sod 3.375 gm/ Dextrose IVPB Q8H-IV TOOTIE Protocol Sodium Chloride 1,000 mls @ 100 mls/hr 04/24/19 19:15 04/24/19 19:00 Normal Saline - IV 100 mls/hr ASDIR TOOTIE Administration Ondansetron HCl 4 mg 04/24/19 19:00 Zofran Injection IVPUSH Q6H PRN NAUSEA Pantoprazole Sodium 40 mg 04/25/19 10:00 Protonix Iv IVPUSH DAILY TOOTIE ASSESSMENT/PLAN 68 year-old female with a PMH significant for rheumatoid arthritis and osteoporosis. Admitted for acute cholecystitis. Sepsis secondary to acute cholecystitis --04/24 CTAP: acute calculus cholecystitis; no biliary tract dilitation --Tm 100.5, p114; lactic acid wnl --continue Zosyn (day #2); ID following --plan to go to OR this afternoon with Dr. Piper --protonix Rheumatoid arthritis --hold Plaquenil while NPO Osteoarthritis --hold Raloxifene while NPO Hematuria --repeat UA FEN Fluids: NS@100mL/hr Electrolytes: replete as indicated Nutrition: NPO DVT prophylaxis: SCDs, oob, ambulation Physical therapy Dispo: continues to require inpatient care. Full code. Visit type - Emergency Visit Emergency Visit: Yes ED Registration Date: 04/24/19 Care time: The patient presented to the Emergency Department on the above date and was hospitalized for further evaluation of their emergent condition. - New Patient This patient is new to me today: Yes Date on this admission: 04/25/19 - Critical Care Critical Care patient: No - Discharge Referral Referred to [facility] No
--- NOTE | 2019-04-25 11:01 | CON.ID ---
Consult - History of Present Illness History of Present Illness: 68 y.o. female with PMH of RA, cardiac murmur (no workup done in the past) presenting with c/o acute RUQ pain that began 2 days ago. Initially pt states that she had epigastric pain with episodes of n/v 4 days ago that she attributed to indigestion. States she felt well the following day but developed the severe RUQ pain. She denies any other complaints. In the ER noted to have fever 101.4F (?) and elevated WBCs. CTAP findings consistent with acute calculous cholecystitis. Currently pt still with RUQ pain, temp of 100.5F. - History Source History Provided By: Patient Limitations to Obtaining History: No Limitations - Past Medical History Cardio/Vascular: Yes: Murmur Musculoskeletal: Yes: Osteoarthritis Rheumatology: Yes: Other (RA) - Past Surgical History Past Surgical History: Yes: Mastectomy - Alcohol/Substance Use Hx Alcohol Use: (occasional) - Smoking History Smoking history: Never smoked Have you smoked in the past 12 months: No - Social History History of Recent Travel: No Home Medications - Allergies Allergies/Adverse Reactions: Allergies Allergy/AdvReac Type Severity Reaction Status Date / Time ciprofloxacin [From Cipro] Allergy Verified 04/24/19 14:13 codeine Allergy Verified 04/24/19 14:13 - Home Medications Home Medications: Ambulatory Orders Hydroxychloroquine Sulfate [Plaquenil] 200 mg PO DAILY 04/24/19 Raloxifene HCl [Evista (Nf) -] 60 mg PO DAILY 04/24/19 Review of Systems - Review of Systems Constitutional: reports: Fever. denies: No Symptoms, Chills, Diaphoresis, Lethargy, Loss of Appetite, Malaise, Night Sweats, Unintentional Wgt. Loss, Weakness, Other Eyes: reports: No Symptoms. denies: Blind Spots, Blurred Vision, Double Vision , Eye Pain, Floaters, Photophobia, Recent Change in Vision, Other HENT: reports: No Symptoms. denies: Difficult Swallowing, Ear Discharge, Ear Pain, Epistaxis, Gingival Bleeding, Hearing Loss, Mouth Swelling, Nasal Congestion, Ocular Prosthesis, Throat Pain, Toothache, Ringing in Ears, Other Neck: reports: No Symptoms. denies: Decreased ROM, Lumps, Pain on Movement, Stiffness, Swollen Glands, Tenderness, Other Cardiovascular: reports: No Symptoms. denies: Chest Pain, Edema, Palpitations, Shortness of Breath, Other Respiratory: reports: No Symptoms. denies: Cough, Exercise Intolerance, Hemoptysis, Orthopnea, PND, Snoring, SOB, SOB on Exertion, Wheezing, Other Gastrointestinal: reports: Abdominal Pain (RUQ) Genitourinary: reports: No Symptoms Musculoskeletal: reports: No Symptoms Integumentary: reports: No Symptoms Neurological: reports: No Symptoms Endocrine: reports: No Symptoms Hematology/Lymphatic: reports: No Symptoms Psychiatric: reports: No Symptoms Pain Intensity: 8 Physical Exam Vital Signs: Vital Signs Temperature 99.4 F 04/25/19 06:29 Pulse Rate 90 04/25/19 06:29 Respiratory Rate 19 04/25/19 06:00 Blood Pressure 155/66 04/25/19 06:00 O2 Sat by Pulse Oximetry (%) 95 04/25/19 06:00 Constitutional: Yes: No Distress Eyes: Yes: Conjunctiva Clear, EOM Intact HENT: Yes: Atraumatic Neck: Yes: Supple, Trachea Midline Cardiovascular: Yes: Regular Rate and Rhythm Respiratory: Yes: Regular Gastrointestinal: Yes: Normal Bowel Sounds, Soft, Tenderness (RUQ) Renal/: Yes: WNL Musculoskeletal: Yes: WNL Extremities: Yes: WNL Edema: No Integumentary: Yes: WNL Neurological: Yes: Alert, Oriented Psychiatric: Yes: Alert Labs: CBC, BMP 04/25/19 06:57 04/25/19 06:57 Laboratory Tests 04/24/19 04/24/19 04/24/19 14:21 15:00 15:00 WBC 18.0 H RBC 4.33 Hgb 12.9 Hct 38.2 MCV 88.2 MCH 29.9 MCHC 33.8 RDW 12.8 Plt Count 226 MPV 9.3 Absolute Neuts (auto) 14.9 Neutrophils % 83.4 H Lymphocytes % 7.2 L Monocytes % 7.5 Eosinophils % 0.3 Basophils % 1.6 PT with INR INR PTT (Actin FS) Sodium 133 L Potassium 3.7 Chloride 99 Carbon Dioxide 25 Anion Gap 9 BUN 15.0 Creatinine 0.6 Est GFR (CKD-EPI)AfAm 107.03 Est GFR (CKD-EPI)NonAf 92.35 Random Glucose 134 H Lactic Acid Calcium 8.8 Total Bilirubin 0.9 AST 23 ALT 20 Alkaline Phosphatase 87 Troponin I Total Protein 7.1 Albumin 3.8 Lipase Urine Color Yellow Urine Appearance Clear Urine pH 5.0 Urine Protein Trace Urine Glucose (UA) Negative Urine Ketones 3+ H Urine Blood 2+ H Urine Nitrite Negative Urine Bilirubin 1+ H Urine Urobilinogen 0.2 Ur Leukocyte Esterase Negative Urine RBC 40-60 Urine WBC 2-5 Ur Transition Epith Cell Few Blood Type Antibody Screen 04/24/19 04/24/19 04/24/19 15:00 15:00 17:30 WBC RBC Hgb Hct MCV MCH MCHC RDW Plt Count MPV Absolute Neuts (auto) Neutrophils % Lymphocytes % Monocytes % Eosinophils % Basophils % PT with INR 14.2 H INR 1.27 H PTT (Actin FS) 29.4 Sodium Potassium Chloride Carbon Dioxide Anion Gap BUN Creatinine Est GFR (CKD-EPI)AfAm Est GFR (CKD-EPI)NonAf Random Glucose Lactic Acid Calcium Total Bilirubin AST ALT Alkaline Phosphatase Troponin I < 0.03 Total Protein Albumin Lipase 172 Urine Color Urine Appearance Urine pH Urine Protein Urine Glucose (UA) Urine Ketones Urine Blood Urine Nitrite Urine Bilirubin Urine Urobilinogen Ur Leukocyte Esterase Urine RBC Urine WBC Ur Transition Epith Cell Blood Type Antibody Screen 04/24/19 04/24/19 04/25/19 17:30 19:25 06:57 WBC 15.4 H RBC 3.83 Hgb 11.4 Hct 33.5 MCV 87.3 MCH 29.8 MCHC 34.1 RDW 12.3 Plt Count 192 MPV 9.5 Absolute Neuts (auto) 12.5 Neutrophils % 80.8 Lymphocytes % 9.5 Monocytes % 8.7 Eosinophils % 0.8 Basophils % 0.2 PT with INR INR PTT (Actin FS) Sodium Potassium Chloride Carbon Dioxide Anion Gap BUN Creatinine Est GFR (CKD-EPI)AfAm Est GFR (CKD-EPI)NonAf Random Glucose Lactic Acid 0.8 Calcium Total Bilirubin AST ALT Alkaline Phosphatase Troponin I Total Protein Albumin Lipase Urine Color Urine Appearance Urine pH Urine Protein Urine Glucose (UA) Urine Ketones Urine Blood Urine Nitrite Urine Bilirubin Urine Urobilinogen Ur Leukocyte Esterase Urine RBC Urine WBC Ur Transition Epith Cell Blood Type B POSITIVE Antibody Screen Negative 04/25/19 06:57 WBC RBC Hgb Hct MCV MCH MCHC RDW Plt Count MPV Absolute Neuts (auto) Neutrophils % Lymphocytes % Monocytes % Eosinophils % Basophils % PT with INR INR PTT (Actin FS) Sodium 138 Potassium 3.9 Chloride 106 Carbon Dioxide 27 Anion Gap 5 L BUN 10.0 Creatinine 0.5 L Est GFR (CKD-EPI)AfAm 113.65 Est GFR (CKD-EPI)NonAf 98.06 Random Glucose 108 H Lactic Acid Calcium 8.5 Total Bilirubin 1.0 AST 18 ALT 18 Alkaline Phosphatase 74 D Troponin I Total Protein 5.7 L Albumin 2.9 L Lipase Urine Color Urine Appearance Urine pH Urine Protein Urine Glucose (UA) Urine Ketones Urine Blood Urine Nitrite Urine Bilirubin Urine Urobilinogen Ur Leukocyte Esterase Urine RBC Urine WBC Ur Transition Epith Cell Blood Type Antibody Screen Imaging - Results Chest X-ray: Report Reviewed Cat Scan: Report Reviewed Problem List - Problems (1) Acute cholecystitis Code(s): K81.0 - ACUTE CHOLECYSTITIS (2) Arthritis, rheumatoid Code(s): M06.9 - RHEUMATOID ARTHRITIS, UNSPECIFIED (3) Cardiac murmur Code(s): R01.1 - CARDIAC MURMUR, UNSPECIFIED Assessment/Plan 68 y.o. female with PMH of RA, cardiac murmur presents with c/o acute RUQ pain x 2 days Acute calculous cholecystitis Fever Leukocytosis Hx of RA Hx of Cardiac murmur -- continue Zosyn empirically -- blood cultures -- plan is for cholecystectomy, Surgical evaluation -- pain control -- continue monitor wbc trend, decreasing -- continue monitor temps/vitals Will follow Thank you
[2019-04-25] MEDS ORDERED: HYDROmorphone HCL CARPU-JECT 1 MG/1 ML DISP.SYRIN IVPUSH ONE (12:30)
--- NOTE | 2019-04-25 12:36 | EKG ---
Test Reason : Blood Pressure : / mmHG Vent. Rate : 095 BPM Atrial Rate : 095 BPM P-R Int : 174 ms QRS Dur : 084 ms QT Int : 382 ms P-R-T Axes : 034 -16 034 degrees QTc Int : 480 ms NORMAL SINUS RHYTHM MINIMAL VOLTAGE CRITERIA FOR LVH, MAY BE NORMAL VARIANT WHEN COMPARED WITH ECG OF 19-MAY-2008 14:42, NO SIGNIFICANT CHANGE WAS FOUND Confirmed by ALEXIS HARRIS, LU ([id number]) on 04/25/2019 12:35:37 PM Referred By: ILANA NARVAEZ Confirmed By:LU ESPINOZA MD
[2019-04-25] MEDS ORDERED: oxyCODONE HCL 5 MG TABLET PO PRN ×2 (13:52→14:36)
[2019-04-25] MEDS ORDERED: morphine CARPU-JECT 4 MG/1 ML DISP.SYRIN IVPB PRN ×2 (13:52→14:35)
[2019-04-25] MEDS ORDERED: IBUPROFEN 800 MG/8 ML IJ IVPB PRN (13:54)
[2019-04-25] MEDS ORDERED: ONDANSETRON 4 MG/2 ML VIAL ONE ×2 (13:55→15:05)
[2019-04-25] MEDS ORDERED: ACETAMINOPHEN 325 MG TABLET (FP) PO PRN (13:55)
[2019-04-25] MEDS ORDERED: DEXAMETHASONE SOD PHOSPHATE 4 MG/1 ML VIAL ONE ×2 (13:55→15:05)
[2019-04-25] MEDS ORDERED: MIDAZOLAM HCL 2 MG/2 ML SINGLE DOSE VIAL ONE (13:56)
--- NOTE | 2019-04-25 13:57 | OP ---
Operative Note - Note: Operative Date: 04/25/19 Pre-Operative Diagnosis: acute cholecystitis Operation: laparoscopic cholecystectomy, lavage Findings: gangrenous cholecystitis Post-Operative Diagnosis: Same as Pre-op Surgeon: Meng Piper Anesthesiologist/PEST CONTROL TECHNICIAN: Miguel A Hoang Anesthesia: General Specimens Removed: gb Estimated Blood Loss (mls): 10 Operative Report Dictated: Yes
[2019-04-25] MEDS ORDERED: ROCURONIUM BROMIDE 50 MG/5 ML VIAL ONE (14:02)
[2019-04-25] MEDS ORDERED: PROPOFOL 20 ML ONE (14:02)
[2019-04-25] MEDS ORDERED: ePHEDrine SULFATE 50 MG/1 ML AMPULE ONE (14:17)
[2019-04-25] MEDS ORDERED: PHENYLEPHRINE HCL 10 MG/1 ML SINGLE DOSE VIAL ONE ×2 (14:19→14:58)
[2019-04-25] MEDS ORDERED: GLYCOPYRROLATE 0.2 MG/1 ML VIAL ONE (15:03)
[2019-04-25] MEDS ORDERED: NEOSTIGMINE METHYLSULFATE 0.5 MG/ML - 10 ML MDV ONE (15:03)
--- NOTE | 2019-04-25 16:26 | PN ---
Progress Note (short form) - Note Progress Note: surgery s/p cholecystectomy. gangrenous cholecystistis noted. can likely discharge tomorrow on oral augmentin 875bid for 5 days if afebrile, ambulating, voiding, and tolerating liquids. ok to shower. no lifting. can advance to regular diet Sunday at home. Dr. Santos covering/available prn over weekend.
[2019-04-25] MEDS: LACTATED RINGERS SOLUTION 1,000 ML IV SCH (18:24)
--- NOTE | 2019-04-25 19:21 | CONS ---
DATE OF CONSULTATION: 04/25/2019 REASON FOR CONSULTATION: Acute cholecystitis, cholelithiasis. REQUESTING PHYSICIAN: This is an emergency room consultation. BRIEF HISTORY: This is a 68-year-old female who presented to the [facility] emergency room with a two-day history of right upper quadrant pain, nausea and vomiting. While in the emergency room, she was noted to have an elevated white blood cell count. She had an ultrasound consistent with a gallstone impacted in the neck of the gallbladder and a CAT scan was consistent with acute cholecystitis. No other acute findings were noted. The patient was admitted for acute cholecystitis, started on Zosyn antibiotic per the ID service and requested surgical intervention, thus a surgical consultation was requested. PAST MEDICAL HISTORY: Significant for rheumatoid arthritis, breast cancer and a heart murmur. PAST SURGICAL HISTORY: Appendectomy as a child and breast cancer surgery. SOCIAL HISTORY: Negative for alcohol and tobacco. FAMILY HISTORY: Noncontributory. ALLERGIES: MILD ALLERGY TO CODEINE BUT SHE HAS BEEN ON DILAUDID THIS ADMISSION. HOME MEDICATIONS: Plaquenil and Evista. She is not on a blood thinner but she has been on prophylactic heparin while in the hospital. REVIEW OF SYSTEMS: General: Denies fatigue or malaise. Cardiac: Denies chest pain or palpitations. Respiratory: Denies shortness of breath or wheeze. Gastrointestinal: As stated in the HPI. Denies diarrhea. Denies blood in the stool. Denies recent weight loss. Genitourinary: Denies dysuria. Musculoskeletal: Denies joint pain. Psychiatric: Denies anxiety, depression or hearing voices. PHYSICAL EXAMINATION: General: This is an overweight 68-year-old female in no distress. Vital signs: She is afebrile with a T-max of 100.5. Her vital signs are otherwise stable. Head: Normocephalic. Sclerae anicteric. Neck: Supple. Chest: Clear. Abdomen: Soft. She has a well-healed appendectomy incision. She has perhaps a small ventral hernia. She has significant right upper quadrant tenderness with guarding. Extremities: Trace edema. REVIEW OF LABORATORY DATA: Her white blood cell count is elevated at 15,000. It was 18,000 on admission. Her chemistries are unremarkable with normal liver function tests and normal lipase. Her coagulation profile is mildly elevated with an INR of 1.27. Her blood cultures are pending. A urinalysis is essentially negative. IMAGING: As mentioned in HPI. There is no dilation of the common bile duct. ASSESSMENT: This is a 68-year-old female who is immunocompromised from Plaquenil. She presents with right upper quadrant pain, nausea and vomiting. An ultrasound as well as a CAT scan show evidence of acute cholecystitis and cholelithiasis. Her physical examination findings are consistent with a peritoneal process in the right upper quadrant. Clinically, this is acute cholecystitis. She is not responding well to the Zosyn antibiotic. At this point, would move in the direction of surgery. I have also offered percutaneous drainage as an option. However, since this has only been going on for three days, the surgery should be reasonably do-able without significant excessive morbidity. The patient and her wish her to have surgery. They prefer the more definitive nature as well as the likely decreased length of stay. They considered the percutaneous drainage and do not wish to have a drain for the next several weeks and then to undergo surgery after the drainage is removed. At this point, continue Zosyn. Will plan for surgery shortly. The risks and benefits of surgery have been explained to the patient and her in detail. These include but are not limited to the possible conversion to open , the possibility of injury to viscera, the possibility of common bile duct injury, the possibility of cystic duct injury, the possibility of blood loss requiring blood transfusion, the possibility of future hernia, the possibility of future obstruction, plus a multitude of medical risks including but not limited to cardiac, neurologic, pulmonary and vascular complications, even . The patient understands these risks and is agreeable to surgery. DO JUAQUIN ROJAS/[id number] MTDD
[2019-04-25] MEDS: SODIUM CHLORIDE 1,000 ML IV SCH (19:59)
[2019-04-26] MEDS ORDERED: DEXTROSE 5%-WATER - 50 ML IVPB ONE ×3 (01:25→17:05)
[2019-04-26] MEDS ORDERED: PIPERACILLIN/TAZOBACTAM 3.375 GM VIAL IVPB ONE ×3 (01:25→17:05)
[2019-04-26] MEDS: PIPERACILLIN/TAZOB 3.375 GM 3.375 GM in DEXTROSE 5%-WATER - 50 ML IVPB SCH ×3 (01:31→17:16)
[2019-04-26] MEDS: HYDROmorphone HCL CARPU-JECT 1 MG/1 ML DISP.SYRIN IVPB PRN ×2 (04:20→09:05)
--- NOTE | 2019-04-26 07:52 | PN ---
Progress Note, Physician - Current Medication List Current Medications: Active Medications Acetaminophen (Tylenol Suppository -) 650 mg NJ Q6H PRN PRN Reason: FEVER Last Admin: 04/25/19 01:47 Dose: 650 mg Acetaminophen (Tylenol -) 650 mg PO Q4H PRN PRN Reason: PAIN LEVEL 1 - 3 Enoxaparin Sodium (Lovenox -) 40 mg SQ DAILY [facility] Fentanyl (Sublimaze Injection -) 50 mcg IVPUSH [id number] PRN PRN Reason: PAIN-PACU ORDER X 4 DOSES ONLY Last Admin: 04/25/19 17:05 Dose: 50 mcg Hydromorphone HCl (Dilaudid Injection -) 1 mg IVPB Q6H PRN PRN Reason: PAIN Last Admin: 04/26/19 04:20 Dose: 1 mg Piperacillin Sod/Tazobactam (Sod 3.375 gm/ Dextrose) 50 mls @ 100 mls/hr IVPB Q8H-IV TOOTIE; Protocol Last Admin: 04/26/19 01:31 Dose: 100 mls/hr Sodium Chloride (Normal Saline -) 1,000 mls @ 100 mls/hr IV ASDIR [facility] Last Admin: 04/25/19 19:59 Dose: 100 mls/hr Lactated Ringer's (Lactated Ringers Solution) 1,000 mls @ 125 mls/hr IV ASDIR [facility] Last Admin: 04/25/19 18:24 Dose: Not Given Ibuprofen (Caldolor Injection -) 600 mg IVPB Q8H PRN PRN Reason: PAIN LEVEL 1 - 3 Last Admin: 04/25/19 22:18 Dose: 600 mg Morphine Sulfate (Morphine Injection -) 4 mg IVPB Q3H PRN PRN Reason: PAIN LEVEL 7 - 10 Ondansetron HCl (Zofran Injection) 4 mg IVPUSH Q6H PRN PRN Reason: NAUSEA Oxycodone HCl (Roxicodone -) 7.5 mg PO Q4H PRN PRN Reason: PAIN LEVEL 4 - 6 Pantoprazole Sodium (Protonix Iv) 40 mg IVPUSH DAILY [facility] Last Admin: 04/25/19 09:05 Dose: 40 mg - Objective Vital Signs: Vital Signs Temperature 98.3 F 04/26/19 05:41 Pulse Rate 77 04/26/19 05:41 Respiratory Rate 16 04/26/19 05:41 Blood Pressure 129/57 L 04/26/19 05:41 O2 Sat by Pulse Oximetry (%) 97 04/26/19 05:42 Elderly F comfortable not in distress HEENT: Mm moist, no anemia NECK: No JVD No Bruit CHEST:CTA B/L CVS:S1S2 R SM at Left sternal border ABD:No distention Rt UQ and epigastric pain and tenderness EXT:No edema feet,no calf tenderness, Pulses +2 B/L, no calf tenderness 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
[2019-04-26] MEDS: PANTOPRAZOLE SODIUM 40 MG VIAL IVPUSH SCH (09:47)
[2019-04-26] MEDS ORDERED: ENOXAPARIN NA (PORCINE) 40 MG/0.4 ML DISP.SYRIN SQ SCH (10:00)
--- NOTE | 2019-04-26 11:20 | OP ---
DATE OF OPERATION: 04/25/2019 PREOPERATIVE DIAGNOSIS: Acute cholecystitis, cholelithiasis. POSTOPERATIVE DIAGNOSIS: Hemorrhagic/gangrenous cholecystitis, cholelithiasis. PROCEDURE: Laparoscopic cholecystectomy and lavage. SURGEON: Meng Piper DO CONTACT LENS BLOCKER: There is no insurance administrative assistant. ANESTHESIOLOGIST: Miguel A Hoang MD (general) SPECIMEN: Gallbladder. INTRAOPERATIVE FINDINGS: Very hemorrhagic/gangrenous cholecystitis. BLOOD LOSS: Approximately 20 mL. DRAINS: None. DISPOSITION: Recovery room in stable condition. BRIEF HISTORY: This is a 68-year-old female who presented to [facility] with signs and symptoms of acute cholecystitis with ultrasound and CT scan evidence to support that. She did not respond well to medical management and was interested in surgical removal. She presents now for surgery. DESCRIPTION OF PROCEDURE: The patient was placed in a supine procedure. After general anesthesia was initiated, the abdomen was prepped and draped in sterile fashion. The patient was already on Zosyn antibiotic. A transverse incision was made infraumbilical with scalpel used to go through the skin and subcutaneous tissue. The fascia was lifted with Andrew clamp. Veress needle was inserted, and pneumoperitoneum was created. Next, an 11-mm trocar was placed followed by insertion of a 10-mm 0-degree laparoscope. An additional 11- mm trocar was placed subxiphoid, and two 5-mm trocars were placed in the right upper quadrant, Attention was turned toward the gallbladder. It was covered by an omental phlegmon. Underneath it was a mostly hemorrhagic with portions of gangrene gallbladder. A Veress needle decompression was done in order to enable grasping of the gallbladder. The fundus was at the cephalad. The infundibulum retracted laterally. The peritoneal peel was dissected down exposing the cystic duct and cystic artery. The cystic artery was noted to cross over the cystic duct. Both were clipped and divided. The gallbladder was then liberated from the liver bed using electrocautery, and hemostasis was maintained using electrocautery. The gallbladder was placed in a specimen bag, removed through the infraumbilical trocar site after a mild fascial dilatation, and sent to Pathology marked as specimen. A vigorous lavage was done and all return was clear. Trocars were removed under direct visualization as pneumoperitoneum was released , and no bleeding was noted. At this point, the fascia at the infraumbilical trocar site was closed with multiple interrupted 0 Vicryl sutures. The 4 skin incisions were closed with Biosyn, and Dermabond dressing was placed. Overall, the patient tolerated the procedure well. There were no complications. The patients disposition was to go to the recovery room, then back to the hospital medical [facility], where she would continue antibiotics, await return of bowel function with possible discharge in the next 24-48 hours. DO JUAQUIN ROJAS/[id number] MTDD
--- NOTE | 2019-04-26 12:22 | DS ---
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 no lifting. can advance to regular diet Sunday at home. . Referrals: Meng Piper MD [Staff Physician] - 1 Week Jeronimo Solis [Primary Care Provider] - 1 Month Disposition: HOME - Home Medications Comprehensive Discharge Medication List: Ambulatory Orders Hydroxychloroquine Sulfate [Plaquenil] 200 mg PO DAILY 04/24/19 Raloxifene HCl [Evista (Nf) -] 60 mg PO DAILY 04/24/19 Acetaminophen [Tylenol .Regular Strength -] 650 mg PO Q4H PRN tablet 04/26/19 Amoxicillin/Potassium Clav [Augmentin 875-125 Tablet] 1 each PO BID 5 Days #10 tablet 04/26/19 Ondansetron HCl [Zofran] 4 mg PO Q6H PRN #30 tablet 04/26/19 Pantoprazole Sodium [Protonix] 40 mg PO DAILY #15 tablet. 04/26/19
[2019-04-26 13:56] VITALS: BP 114/52; PULSE 73; TEMP 98.7
[2019-04-26] MEDS: LACTATED RINGERS SOLUTION 1,000 ML IV SCH (15:55)
--- NOTE | 2019-05-01 09:26 | PATH ---
Surgical Pathology Report Patient Name: AVI SIMON Med. Rec. #: [id number] /Age/Gender: 1950 (Age: 68) / F Account: [id number] Location: [facility] MED-SURG Taken: 04/25/2019 Received: 04/25/2019 Reported: 04/30/2019 Physicians: Meng Piper M.D. Specimen(s) Received GALLBLADDER Clinical History Acute cholecystitis Final Diagnosis GALLBLADDER, CHOLECYSTECTOMY: ACUTE NECROTIZING CHOLECYSTITIS AND CHOLELITHIASIS. Electronically Signed Kelley Kevin M.D. Gross Description Received in formalin, labeled "gallbladder," is a 7.5 x 4.3 x 2.0 cm. gallbladder with a 0.3 cm. in length portion of cystic duct attached. The outer surface is stone christian with focal defects and varies from smooth to shaggy. The lumen contains stone, tenacious bile as well as multiple yellow, irregular to spherical, bosselated choleliths ranging from 0.1-0.4 cm in greatest dimension. The mucosa is brown-green with a focal gangrenous appearance. The wall of the gallbladder ranges from 0.1-0.3 cm. in thickness. Cook Manager sections are submitted in one cassette. 04/29/201904/29/2019
== END 2019-04-26 18:30 | disposition home or self-care (01) | DRG 419 ==
LOC: FER 14:12 → FM/S 18:05
PROVIDERS: ADMIT Internal Medicine; ATTEND Nurse Practitioner Acute Care
PROC: 0FT44ZZ Resection of Gallbladder, Percutaneous Endoscopic Approach (ICD-10-PCS; principal; 2019-04-25 14:27)
DX: K80.00 Calculus of gallbladder with acute cholecystitis without obstruction (principal); K82.A1 Gangrene of gallbladder in cholecystitis; M06.9 Rheumatoid arthritis, unspecified; R01.1 Cardiac murmur, unspecified; Z85.3 Personal history of malignant neoplasm of breast; M81.0 Age-related osteoporosis without current pathological fracture; Z90.10 Acquired absence of unspecified breast and nipple
CPT/HCPCS: 36415; 71045-TC-FY; 74177-TC; 76705-TC; 80053; 81003; 81015; 83605; 83690; 84484; 85025; 85610; 85730; 86850; 86900; 86901; 87040; 87086; 88304-TC; 93005; 94760; 97116-GP; 97162-GP; 99284-25; J0131; J7030